=== PATIENT | female | born 1995 | race Caucasian/White ===

== ENCOUNTER → 2016-04-23 | Outpatient (CLI) | payer OTHER ==
[~2016-04-23] VITALS: Ht 160 cm; Wt 57.3 kg
[~2016-04-23] MED LIST: PRENATAL CAPSU1 EACH PO; TYLENOL COLD-F240 ML PO
[2016-04-23 09:42] VITALS: BP 105/53
== END | disposition home or self-care (01) ==
LOC: IVINF 09:27
DX: O36.0990 Maternal care for other rhesus isoimmunization, unspecified trimester, not applicable or unspecified (principal); Z3A.00 Weeks of gestation of pregnancy not specified
CPT/HCPCS: 96372; J2790